=== PATIENT | female | born 1975 | race African-American/Black ===

== ENCOUNTER 2016-08-25 00:15 | Emergency (ER) | payer MEDICAID ==
[2016-08-25] MEDS ORDERED: DILAUDID 1 MG/ML AMP ONE ×2 (01:37→04:20)
[2016-08-25] MEDS ORDERED: ONDANSETRON 4 MG VIAL ONE (01:37)
[2016-08-25] MEDS ORDERED: SODIUM CHLORIDE 0.9% 1,000 ML ONE (01:37)
[2016-08-25] MEDS ORDERED: ONDANSETRON ODT 4 MG TAB ONE (06:30)
[2016-08-25] MEDS ORDERED: cloNIDine 0.1 MG TAB ONE (06:30)
== END 2016-08-25 07:55 | disposition home or self-care (01) ==
LOC: ER 00:15
DX: K57.32 Diverticulitis of large intestine without perforation or abscess without bleeding (principal)
CPT/HCPCS: 36415; 71010; 74176; 80053; 82550; 83735; 83880; 84484; 85025; 85610; 85730; 93005; 96361; 96374; 96375; 96376